=== PATIENT | male | born 1980 | race Caucasian/White ===

== ENCOUNTER 2017-06-27 18:22 | Emergency (ER) | payer OTHER ==
[~2017-06-27] VITALS: Ht 167.6 cm; Wt 169.9 kg
[2017-06-27 22:13] VITALS: BP 143/108
== END 2017-06-27 22:15 | disposition home or self-care (01) ==
LOC: EME 18:22
PROC: 0HQKXZZ Repair Right Lower Leg Skin, External Approach (ICD-10-PCS; principal; 2017-06-27)
DX: I83.891 Varicose veins of right lower extremity with other complications (principal); Z88.2 Allergy status to sulfonamides; Z88.0 Allergy status to penicillin
CPT/HCPCS: 99281; 99284

== ENCOUNTER 2017-10-06 08:19 | Emergency (ER) | payer OTHER ==
[~2017-10-06] VITALS: Ht 167.6 cm; Wt 159.2 kg
[2017-10-06 10:03] VITALS: BP 150/95
== END 2017-10-06 10:10 | disposition home or self-care (01) ==
LOC: EME 08:19
PROC: 0HQKXZZ Repair Right Lower Leg Skin, External Approach (ICD-10-PCS; principal; 2017-10-06)
DX: I83.891 Varicose veins of right lower extremity with other complications (principal); E66.01 Morbid (severe) obesity due to excess calories; Z68.43 Body mass index [BMI] 50.0-59.9, adult; Z87.891 Personal history of nicotine dependence; Z88.0 Allergy status to penicillin; Z88.2 Allergy status to sulfonamides
CPT/HCPCS: 99281; 99284